=== PATIENT | male | born 1985 | race African-American/Black ===

== ENCOUNTER 2017-09-19 12:06 | Emergency (ER) | payer SELFPAY ==
[~2017-09-19] VITALS: Ht 182.9 cm; Wt 90.0 kg
[2017-09-19] MEDS ORDERED: KEFLEX500 M1 PO (13:06)
[2017-09-19] MEDS ORDERED: BACTRIM DS1 TAB PO (13:06)
[2017-09-19 13:15] VITALS: BP 133/89
== END 2017-09-19 13:15 | disposition home or self-care (01) | DRG 603 ==
LOC: ED 12:06
PROC: 0H91XZZ Drainage of Face Skin, External Approach (ICD-10-PCS; principal; 2017-09-19)
DX: L02.01 Cutaneous abscess of face (principal); F17.210 Nicotine dependence, cigarettes, uncomplicated

== ENCOUNTER 2017-09-20 10:15 | Emergency (ER) | payer SELFPAY ==
[~2017-09-20] VITALS: Ht 182.9 cm; Wt 72.0 kg
[~2017-09-20 10:15] MED LIST: BACTRIM DS1 TAB PO; KEFLEX500 M1 PO
[2017-09-20 10:32] VITALS: BP 134/77
== END 2017-09-20 10:35 | disposition home or self-care (01) | DRG 951 ==
LOC: ED 10:15
DX: Z48.01 Encounter for change or removal of surgical wound dressing (principal); F17.210 Nicotine dependence, cigarettes, uncomplicated